=== PATIENT | male | born 1950 | race Asian ===

== ENCOUNTER 2018-02-24 11:40 | Emergency (ER) | payer MEDICARE, OTHER ==
[2018-02-24] MEDS: DIPHTH/TET/ACEL PERTUSS (ADULT) 0.5 ML VIAL IM* (12:24)
[2018-02-24 12:40] LABS: ADD MAN DIFF? NO
[2018-02-24 12:42] LABS: BASOPHIL # 0.1 10^3/ul (0.0-0.1); BASOPHILS % 0.6 % (0.0-2.0); EOSINOPHILS # 0.4 10^3/ul (0.0-0.5); EOSINOPHILS % 4.6 % (0.0-7.0); HEMATOCRIT 37.3 % (42.0-52.0); HEMOGLOBIN 12.7 g/dl (14.0-18.0); LYMPHOCYTES # 2.7 10^3/ul (0.8-2.9); LYMPHOCYTES % 29.5 % (15.0-51.0); MEAN CORPUSCULAR HEMOGLOBIN 32.6 pg (29.0-33.0); MEAN CORPUSCULAR VOLUME 95.9 fl (82.0-101.0); MEAN PLATELET VOLUME 9.3 fl (7.4-10.4); MONOCYTE # 0.7 10^3/ul (0.3-0.9); MONOCYTES % 7.8 % (0.0-11.0); NEUTROPHIL # 5.1 10^3/ul (1.6-7.5); NEUTROPHILS % 57.1 % (39.0-77.0); PLATELET COUNT 227 10^3/UL (140-415); RED BLOOD COUNT 3.89 10^6/ul (4.70-6.10); RED CELL DISTRIBUTION WIDTH 13.2 % (11.5-14.5)
[2018-02-24 13:04] LABS: ANION GAP 19 (8-16); BLOOD UREA NITROGEN 15 mg/dl (7-20); CALCIUM 9.6 mg/dl (8.4-10.2); CARBON DIOXIDE 25 mmol/L (21-31); CHLORIDE 107 mmol/L (97-110); CREATININE 0.87 mg/dl (0.61-1.24); GLUCOSE 107 mg/dl (70-220); POTASSIUM 3.6 mmol/L (3.5-5.1); SODIUM 147 mmol/L (135-144)
[2018-02-24 13:10] LABS: INR 0.98; PROTIME 13.1 Sec (11.9-14.9)
[2018-02-24 13:11] LABS: PARTIAL THROMBOPLASTIN TIME 22.3 Sec (25.0-35.0)
== END 2018-02-24 15:50 | disposition home or self-care (01) ==
LOC: E/R 11:40
DX: S00.83XA Contusion of other part of head, initial encounter (principal); D64.9 Anemia, unspecified; R40.2142 Coma scale, eyes open, spontaneous, at arrival to emergency department; R40.2242 Coma scale, best verbal response, confused conversation, at arrival to emergency department; R40.2362 Coma scale, best motor response, obeys commands, at arrival to emergency department; R06.02 Shortness of breath; W18.39XA Other fall on same level, initial encounter; Y92.9 Unspecified place or not applicable; Z23 Encounter for immunization
CPT/HCPCS: 36415; 70450; 70486; 72125; 80048; 82962; 85025; 85610; 85730; 90471; 90715; 99285-25

== ENCOUNTER 2018-04-10 21:00 | Inpatient (IN) | payer MEDICARE ==
[2018-04-10 21:36] LABS: ADD MAN DIFF? NO
[2018-04-10 21:37] LABS: BASOPHILS % 0.4 % (0.0-2.0); EOSINOPHILS # 0.2 10^3/ul (0.0-0.5); EOSINOPHILS % 2.2 % (0.0-7.0); HEMATOCRIT 42.9 % (42.0-52.0); HEMOGLOBIN 14.9 g/dl (14.0-18.0); LYMPHOCYTES # 3.7 10^3/ul (0.8-2.9); LYMPHOCYTES % 40.1 % (15.0-51.0); MEAN CORPUSCULAR HEMOGLOBIN 33.3 pg (29.0-33.0); MEAN CORPUSCULAR HGB CONC 34.7 g/dl (32.0-37.0); MEAN CORPUSCULAR VOLUME 95.8 fl (82.0-101.0); MEAN PLATELET VOLUME 8.8 fl (7.4-10.4); MONOCYTE # 0.7 10^3/ul (0.3-0.9); MONOCYTES % 7.8 % (0.0-11.0); NEUTROPHIL # 4.5 10^3/ul (1.6-7.5); NEUTROPHILS % 49.3 % (39.0-77.0); PLATELET COUNT 282 10^3/UL (140-415); RED BLOOD COUNT 4.48 10^6/ul (4.70-6.10); RED CELL DISTRIBUTION WIDTH 12.8 % (11.5-14.5)
[2018-04-10 21:37] LABS: WHITE BLOOD COUNT 9.2 10^3/ul (4.8-10.8)
[2018-04-10] MEDS: SOD CHLORIDE 0.9% 1,000 ML IV (21:40)
[2018-04-10 21:57] LABS: INR 0.99; PROTIME 13.2 Sec (11.9-14.9)
[2018-04-10 21:58] LABS: ANION GAP 13 (8-16); BLOOD UREA NITROGEN 18 mg/dl (7-20); CALCIUM 9.9 mg/dl (8.4-10.2); CARBON DIOXIDE 30 mmol/L (21-31); CHLORIDE 100 mmol/L (97-110); CREATININE 0.94 mg/dl (0.61-1.24); GLUCOSE 108 mg/dl (70-220); PARTIAL THROMBOPLASTIN TIME 24.1 Sec (25.0-35.0); POTASSIUM 3.2 mmol/L (3.5-5.1); SODIUM 140 mmol/L (135-144)
[2018-04-10 22:10] LABS: TROPONIN-I < 0.010 ng/ml (0.000-0.120)
[2018-04-10] MEDS ORDERED: ACETAMINOPHEN 325 MG TAB PO (23:30)
[2018-04-10] MEDS ORDERED: ONDANSETRON 4 MG INJ IV (23:30)
[2018-04-11 01:18] LABS: ADD UMIC YES; UR AMORPHOUS CRYSTAL FEW /HPF (NONE SEEN); UR ASCORBIC ACID 40 mg/dL (NEGATIVE); UR BACTERIA FEW /HPF (NONE SEEN); UR BILIRUBIN (Dip) NEGATIVE (NEGATIVE); UR BLOOD (Dip) NEGATIVE (NEGATIVE); UR CLARITY SLIGHTLY CLOUDY (CLEAR); UR COLOR YELLOW (YELLOW); UR GLUCOSE (Dip) NEGATIVE (NEGATIVE); UR KETONES (Dip) NEGATIVE (NEGATIVE); UR LEUKOCYTE ESTERASE (Dip) 1+ Leu/ul (NEGATIVE); UR MUCUS FEW /HPF (NONE SEEN); UR NITRITE (Dip) NEGATIVE (NEGATIVE); UR RBC 3 /HPF (0-5); UR SPECIFIC GRAVITY (Dip) 1.014 (1.003-1.030); UR TOTAL PROTEIN (Dip) NEGATIVE (NEGATIVE); UR UROBILINOGEN (Dip) 1+ mg/dL (NEGATIVE); UR WBC 59 /HPF (0-5)
[2018-04-11] MEDS: POTASSIUM CHLORIDE (SR) 20 MEQ TAB PO (02:55)
[2018-04-11] MEDS: HALOPERIDOL 5 MG INJ IM (03:49)
[2018-04-11] MEDS: LORAZEPAM 2 MG INJ IV (07:56)
[2018-04-11] MEDS: OLANZAPINE 5 MG TAB PO (08:05)
[2018-04-11] MEDS: DOCUSATE SODIUM 100 MG CAP PO (08:05)
[2018-04-11] MEDS: MULTIVITAMINS THERAPEUTIC TAB PO (08:06)
[2018-04-11] MEDS: POTASSIUM CHLORIDE (SR) 10 MEQ TAB PO (08:06)
[2018-04-11] MEDS: MEGESTROL 40 MG TAB PO ×2 (09:00→21:25)
[2018-04-11 09:08] LABS: ADD MAN DIFF? NO
[2018-04-11 09:19] LABS: BASOPHILS % 0.4 % (0.0-2.0); EOSINOPHILS # 0.1 10^3/ul (0.0-0.5); EOSINOPHILS % 1.4 % (0.0-7.0); HEMATOCRIT 43.1 % (42.0-52.0); HEMOGLOBIN 14.5 g/dl (14.0-18.0); LYMPHOCYTES # 3.3 10^3/ul (0.8-2.9); LYMPHOCYTES % 38.7 % (15.0-51.0); MEAN CORPUSCULAR HEMOGLOBIN 32.2 pg (29.0-33.0); MEAN CORPUSCULAR HGB CONC 33.6 g/dl (32.0-37.0); MEAN CORPUSCULAR VOLUME 95.8 fl (82.0-101.0); MEAN PLATELET VOLUME 8.6 fl (7.4-10.4); MONOCYTE # 0.5 10^3/ul (0.3-0.9); MONOCYTES % 5.8 % (0.0-11.0); NEUTROPHIL # 4.5 10^3/ul (1.6-7.5); NEUTROPHILS % 53.2 % (39.0-77.0); PLATELET COUNT 285 10^3/UL (140-415); RED CELL DISTRIBUTION WIDTH 13.2 % (11.5-14.5)
[2018-04-11 09:19] LABS: WHITE BLOOD COUNT 8.5 10^3/ul (4.8-10.8)
[2018-04-11 09:56] LABS: TROPONIN-I < 0.010 ng/ml (0.000-0.120)
[2018-04-11 10:04] LABS: ALANINE AMINOTRANSFERASE 31 IU/L (13-69); ALBUMIN 4.1 g/dl (3.3-4.9); ALBUMIN/GLOBULIN RATIO 1.36; ALKALINE PHOSPHATASE 43 IU/L (42-121); ANION GAP 12 (8-16); ASPARTATE AMINO TRANSFERASE 28 IU/L (15-46); BILIRUBIN,INDIRECT 0.7 mg/dl (0-1.1); BILIRUBIN,TOTAL 0.7 mg/dl (0.2-1.3); BLOOD UREA NITROGEN 13 mg/dl (7-20); CALCIUM 9.5 mg/dl (8.4-10.2); CARBON DIOXIDE 29 mmol/L (21-31); CHLORIDE 104 mmol/L (97-110); CHOLESTEROL 140 mg/dl (100-200); CREATININE 0.86 mg/dl (0.61-1.24); GLUCOSE 129 mg/dl (70-220); MAGNESIUM 2.3 mg/dl (1.7-2.5); PHOSPHORUS 2.8 mg/dl (2.5-4.9); POTASSIUM 3.2 mmol/L (3.5-5.1); SODIUM 142 mmol/L (135-144); TOTAL PROTEIN 7.1 g/dl (6.1-8.1)
[2018-04-11] MEDS: FENOFIBRATE 48 MG TAB PO (10:10)
[2018-04-11 11:42] LABS: HEMOGLOBIN A1C 5.6 % (0-5.9)
[2018-04-11] MEDS: SOD CHLORIDE 0.45% 1,000 ML IV (13:12)
[2018-04-11] MEDS: CIPROFLOXACIN 400MG/D5W 200 ML IVPB ×2 (13:12→21:23)
[2018-04-11] MEDS: POTASSIUM CHLORIDE 20 MEQ POWDER FOR ORAL SOLN PO (13:12)
[2018-04-11] MEDS: VENLAFAXINE 37.5 MG TAB PO (16:35)
[2018-04-11] MEDS ORDERED: clonAZEPAM 0.5 MG TAB PO (21:00)
[2018-04-11] MEDS: TAMSULOSIN (SR) 0.4 MG CAP PO (21:25)
[2018-04-12] MEDS: SOD CHLORIDE 0.45% 1,000 ML IV (05:37)
[2018-04-12 06:42] LABS: ADD MAN DIFF? NO
[2018-04-12 06:56] LABS: WHITE BLOOD COUNT 8.7 10^3/ul (4.8-10.8)
[2018-04-12 06:56] LABS: BASOPHILS % 0.3 % (0.0-2.0); EOSINOPHILS # 0.2 10^3/ul (0.0-0.5); EOSINOPHILS % 2.5 % (0.0-7.0); HEMATOCRIT 42.6 % (42.0-52.0); HEMOGLOBIN 14.5 g/dl (14.0-18.0); LYMPHOCYTES # 2.9 10^3/ul (0.8-2.9); LYMPHOCYTES % 33.3 % (15.0-51.0); MEAN CORPUSCULAR HEMOGLOBIN 33.3 pg (29.0-33.0); MEAN CORPUSCULAR VOLUME 97.7 fl (82.0-101.0); MEAN PLATELET VOLUME 9.1 fl (7.4-10.4); MONOCYTE # 0.7 10^3/ul (0.3-0.9); MONOCYTES % 7.8 % (0.0-11.0); NEUTROPHIL # 4.9 10^3/ul (1.6-7.5); NEUTROPHILS % 55.8 % (39.0-77.0); PLATELET COUNT 268 10^3/UL (140-415); RED BLOOD COUNT 4.36 10^6/ul (4.70-6.10); RED CELL DISTRIBUTION WIDTH 13.1 % (11.5-14.5)
[2018-04-12 07:23] LABS: ANION GAP 10 (8-16); BLOOD UREA NITROGEN 12 mg/dl (7-20); CALCIUM 9.1 mg/dl (8.4-10.2); CARBON DIOXIDE 27 mmol/L (21-31); CHLORIDE 110 mmol/L (97-110); CREATININE 0.71 mg/dl (0.61-1.24); GLUCOSE 87 mg/dl (70-220); MAGNESIUM 2.3 mg/dl (1.7-2.5); PHOSPHORUS 3.2 mg/dl (2.5-4.9); POTASSIUM 4.1 mmol/L (3.5-5.1); SODIUM 143 mmol/L (135-144)
[2018-04-12] MEDS: MEGESTROL 40 MG TAB PO ×2 (08:44→22:13)
[2018-04-12] MEDS: CIPROFLOXACIN 400MG/D5W 200 ML IVPB ×2 (08:44→22:13)
[2018-04-12] MEDS: VENLAFAXINE 37.5 MG TAB PO (08:44)
[2018-04-12] MEDS: FENOFIBRATE 48 MG TAB PO (08:44)
[2018-04-12] MEDS: MULTIVITAMINS THERAPEUTIC TAB PO (08:45)
[2018-04-12] MEDS: DOCUSATE SODIUM 100 MG CAP PO (08:45)
[2018-04-12] MEDS: POTASSIUM CHLORIDE (SR) 10 MEQ TAB PO (08:45)
[2018-04-12] MEDS: TAMSULOSIN (SR) 0.4 MG CAP PO (22:13)
[2018-04-13] MEDS: SOD CHLORIDE 0.45% 1,000 ML IV (02:39)
[2018-04-13] MEDS: MULTIVITAMINS THERAPEUTIC TAB PO (08:06)
[2018-04-13] MEDS: CIPROFLOXACIN 400MG/D5W 200 ML IVPB ×2 (08:06→21:16)
[2018-04-13] MEDS: DOCUSATE SODIUM 100 MG CAP PO (08:06)
[2018-04-13] MEDS: VENLAFAXINE 37.5 MG TAB PO ×2 (08:06→21:17)
[2018-04-13] MEDS: FENOFIBRATE 48 MG TAB PO (08:06)
[2018-04-13] MEDS: MEGESTROL 40 MG TAB PO ×2 (08:06→21:17)
[2018-04-13] MEDS: POTASSIUM CHLORIDE (SR) 10 MEQ TAB PO (08:07)
[2018-04-13] MEDS: TAMSULOSIN (SR) 0.4 MG CAP PO (21:17)
[2018-04-14] MEDS: SOD CHLORIDE 0.45% 1,000 ML IV (01:46)
[2018-04-14] MEDS: DOCUSATE SODIUM 100 MG CAP PO (08:09)
[2018-04-14] MEDS: MEGESTROL 40 MG TAB PO ×2 (08:09→20:40)
[2018-04-14] MEDS: MULTIVITAMINS THERAPEUTIC TAB PO (08:09)
[2018-04-14] MEDS: FENOFIBRATE 48 MG TAB PO (08:09)
[2018-04-14] MEDS: POTASSIUM CHLORIDE (SR) 10 MEQ TAB PO (08:09)
[2018-04-14] MEDS: VENLAFAXINE 37.5 MG TAB PO ×2 (08:10→20:39)
[2018-04-14] MEDS: CIPROFLOXACIN 400MG/D5W 200 ML IVPB (08:13)
[2018-04-14 09:08] LABS: ADD MAN DIFF? NO
[2018-04-14 09:24] LABS: WHITE BLOOD COUNT 10.7 10^3/ul (4.8-10.8)
[2018-04-14 09:24] LABS: BASOPHILS % 0.3 % (0.0-2.0); EOSINOPHILS # 0.2 10^3/ul (0.0-0.5); EOSINOPHILS % 1.9 % (0.0-7.0); HEMATOCRIT 38.7 % (42.0-52.0); HEMOGLOBIN 12.8 g/dl (14.0-18.0); LYMPHOCYTES % 18.6 % (15.0-51.0); MEAN CORPUSCULAR HEMOGLOBIN 32.3 pg (29.0-33.0); MEAN CORPUSCULAR HGB CONC 33.1 g/dl (32.0-37.0); MEAN CORPUSCULAR VOLUME 97.7 fl (82.0-101.0); MEAN PLATELET VOLUME 9.1 fl (7.4-10.4); MONOCYTE # 0.6 10^3/ul (0.3-0.9); MONOCYTES % 5.7 % (0.0-11.0); NEUTROPHIL # 7.8 10^3/ul (1.6-7.5); PLATELET COUNT 252 10^3/UL (140-415); RED BLOOD COUNT 3.96 10^6/ul (4.70-6.10); RED CELL DISTRIBUTION WIDTH 13.2 % (11.5-14.5)
[2018-04-14 09:41] LABS: ANION GAP 12 (8-16); BLOOD UREA NITROGEN 16 mg/dl (7-20); CALCIUM 8.8 mg/dl (8.4-10.2); CARBON DIOXIDE 26 mmol/L (21-31); CHLORIDE 109 mmol/L (97-110); CREATININE 0.89 mg/dl (0.61-1.24); GLUCOSE 99 mg/dl (70-220); MAGNESIUM 2.2 mg/dl (1.7-2.5); PHOSPHORUS 2.7 mg/dl (2.5-4.9); SODIUM 143 mmol/L (135-144)
[2018-04-14] MEDS: CIPROFLOXACIN 500 MG TAB PO (17:50)
[2018-04-14] MEDS: TAMSULOSIN (SR) 0.4 MG CAP PO (20:39)
[2018-04-15] MEDS: CIPROFLOXACIN 500 MG TAB PO ×2 (05:47→17:19)
[2018-04-15 06:55] LABS: ADD MAN DIFF? NO
[2018-04-15 07:01] LABS: BASOPHILS % 0.5 % (0.0-2.0); EOSINOPHILS # 0.2 10^3/ul (0.0-0.5); EOSINOPHILS % 2.4 % (0.0-7.0); HEMATOCRIT 38.9 % (42.0-52.0); HEMOGLOBIN 13.1 g/dl (14.0-18.0); LYMPHOCYTES # 2.5 10^3/ul (0.8-2.9); LYMPHOCYTES % 31.8 % (15.0-51.0); MEAN CORPUSCULAR HGB CONC 33.7 g/dl (32.0-37.0); MEAN PLATELET VOLUME 8.9 fl (7.4-10.4); MONOCYTE # 0.6 10^3/ul (0.3-0.9); MONOCYTES % 7.9 % (0.0-11.0); NEUTROPHIL # 4.5 10^3/ul (1.6-7.5); PLATELET COUNT 243 10^3/UL (140-415); RED BLOOD COUNT 3.97 10^6/ul (4.70-6.10); RED CELL DISTRIBUTION WIDTH 13.1 % (11.5-14.5)
[2018-04-15 07:01] LABS: WHITE BLOOD COUNT 7.9 10^3/ul (4.8-10.8)
[2018-04-15 07:58] LABS: ALANINE AMINOTRANSFERASE 23 IU/L (13-69); ALBUMIN 3.7 g/dl (3.3-4.9); ALBUMIN/GLOBULIN RATIO 1.32; ALKALINE PHOSPHATASE 53 IU/L (42-121); ANION GAP 9 (8-16); ASPARTATE AMINO TRANSFERASE 26 IU/L (15-46); BILIRUBIN,INDIRECT 0.6 mg/dl (0-1.1); BILIRUBIN,TOTAL 0.6 mg/dl (0.2-1.3); BLOOD UREA NITROGEN 13 mg/dl (7-20); CARBON DIOXIDE 26 mmol/L (21-31); CHLORIDE 111 mmol/L (97-110); CREATININE 0.78 mg/dl (0.61-1.24); GLUCOSE 113 mg/dl (70-220); POTASSIUM 3.8 mmol/L (3.5-5.1); SODIUM 142 mmol/L (135-144); TOTAL PROTEIN 6.5 g/dl (6.1-8.1)
[2018-04-15 08:02] LABS: FREE T4 (FREE THYROXINE) 1.44 ng/dl (0.78-2.44)
[2018-04-15 08:18] LABS: TRIIODOTHYRONINE 1.05 ng/ml (0.97-1.69)
[2018-04-15] MEDS: MEGESTROL 40 MG TAB PO ×2 (08:40→20:59)
[2018-04-15] MEDS: DOCUSATE SODIUM 100 MG CAP PO (08:40)
[2018-04-15] MEDS: FENOFIBRATE 48 MG TAB PO (08:40)
[2018-04-15] MEDS: VENLAFAXINE 37.5 MG TAB PO ×2 (08:41→20:59)
[2018-04-15] MEDS: MULTIVITAMINS THERAPEUTIC TAB PO (08:41)
[2018-04-15] MEDS: POTASSIUM CHLORIDE (SR) 10 MEQ TAB PO (08:41)
[2018-04-15 18:23] LABS: RAPID PLASMA REAGIN NONREACTIVE (NR)
[2018-04-15 20:37] LABS: FOLATE 10.7 ng/ml (2.8-20.0)
[2018-04-15] MEDS: TAMSULOSIN (SR) 0.4 MG CAP PO (20:59)
[2018-04-16] MEDS: CIPROFLOXACIN 500 MG TAB PO ×2 (06:20→17:55)
[2018-04-16] MEDS: VENLAFAXINE 37.5 MG TAB PO (08:14)
[2018-04-16] MEDS: FENOFIBRATE 48 MG TAB PO (08:14)
[2018-04-16] MEDS: DOCUSATE SODIUM 100 MG CAP PO (08:14)
[2018-04-16] MEDS: MEGESTROL 40 MG TAB PO (08:14)
[2018-04-16] MEDS: MULTIVITAMINS THERAPEUTIC TAB PO (08:14)
[2018-04-16] MEDS: POTASSIUM CHLORIDE (SR) 10 MEQ TAB PO (08:14)
[2018-04-16] MEDS: LEVOTHYROXINE 25 MCG TAB PO (11:14)
[2018-04-16] MEDS: ENOXAPARIN 40 MG/0.4 ML SYG SC (11:25)
== END 2018-04-16 20:30 | disposition home or self-care (01) | DRG 884 ==
LOC: TEL 23:30 → E/R 21:00 → TEL 04-11 21:18
PROC: B030ZZZ Magnetic Resonance Imaging (MRI) of Brain (ICD-10-PCS; principal; 2018-04-16)
DX: F03.90 Unspecified dementia, unspecified severity, without behavioral disturbance, psychotic disturbance, mood disturbance, and anxiety (principal); F05 Delirium due to known physiological condition; N39.0 Urinary tract infection, site not specified; M48.02 Spinal stenosis, cervical region; R55 Syncope and collapse; F32.9 Major depressive disorder, single episode, unspecified; R62.7 Adult failure to thrive; E02 Subclinical iodine-deficiency hypothyroidism; Z91.81 History of falling
CPT/HCPCS: 36415; 70450; 70551; 71045; 72125; 80048; 80053; 81001; 82465; 82607; 82746; 83036; 83735; 84100; 84439; 84443; 84480; 84484; 85025; 85610; 85730; 86592; 93005; 93306; 97110; 97116; 97161; 97530; 99285-25; G0378